=== PATIENT | female | born 1950 | race Caucasian/White ===

== ENCOUNTER 2024-03-22 08:43 | Outpatient (AMB) | payer MEDICARE, SELFPAY ==
[2024-03-22 09:58] VITALS: BP 138/80; PULSE 75; O2SAT 98; BMI 34.9
--- NOTE | 2024-03-22 09:58 | A.OFFVIS_ITS ---
Vital Signs 03/22/24 09:58 Height 5 ft 3 in Weight 197 lb 1.492 oz BMI 34.9 BP 138/80 Blood Pressure Location Lt brachial Pulse 75 Pulse Source Pulse Oximeter Pulse Oximetry (%) 98 Oxygen Delivery Method Room Air Intake Visit Reasons: Arthritis/cm Intake Note: Patient is here for osteoarthritis in wrists and hands. Allergies No Known Allergies Allergy (Verified 03/22/24 10:04) HPI HPI Arthritis/cm: Details: She is not having pain in hands. She participates in gentle chair yoga and does hand exercises that she has learned from PT in the past twice a week. She uses Tylenol arthritis 2 tablets twice a day 8 hours apart daily. She has been using Tylenol for years. 02/22/2024 ALT 40 elevated (0-32), AST 37 (0-40) Review of Systems Const All systems reviewed & are unremarkable except as noted in HPI and below Physical Exam Vital Signs: Last Vital Signs Pulse 75 03/22/24 09:58 BP 138/80 03/22/24 09:58 Pulse Ox 98 03/22/24 09:58 Oxygen Delivery Method Room Air 03/22/24 09:58 BMI result Body Mass Index 34.9 Const Other: General: Comfortable Skin: No lesions seen MSK: No joints are tender on palpation. [place] nodes are present. She has squaring of bilateral CMC joints. 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 Assessment & Plan Assessment & Plan (1) Osteoarthritis, hand, primary localized: Comment: Doing well. Pain is controlled on Tylenol. Recent labs reviewed with patient, which revealed mild transaminitis. She does not have any known history of liver disease. She has been on chronic Tylenol for pain control with benefit for years. Code(s): M19.049 - Primary osteoarthritis, unspecified hand Category: Medical Plan: Continue hand exercises daily AST and ALT repeated for baseline. If there is persistent elevation, I am recommending that she contact PCP for consideration of liver ultrasound She will continue Tylenol 1300 mg b.i.d. for now. May need to reduce dose after liver enzymes are back [facility] Return to clinic in 1 year or sooner if needed (2) Transaminitis: Comment: Unknown baseline. Labs from 02/21/2025 reveals mild elevation in ALT. No alcohol history. Code(s): R74.01 - Elevation of levels of liver transaminase levels Category: Medical Plan: Labs ordered to repeat AST and ALT Orders: Orders Alanine Aminotransferase Today R74.01 - Elevation of levels of liver transaminase levels Aspartate Amino Transferase Today R74.01 - Elevation of levels of liver transaminase levels Coding Level of Care Code Est Pt Level 3 (05645) Complex EM visit Add On G2211 Diagnoses Osteoarthritis, hand, primary localized M19.049 Transaminitis R74.01
--- OUTSIDE RECORDS SUMMARY | 2024-03-28 16:32 | XMS_ITS | Clinical Summary ---
Author Organization Unknown Care Team Providers Care Digital Marketing Analyst Name Role Phone DURAN BETTS, SAMEER Unavailable Unav ailable MUSHTAQ PT, GINA Unavailable Unavailable KADE BRIAN, TEE Unavailable Unavailable Payers Payer Name Policy Type Policy Number Effective Date Expira tion Date MEDICARE - [place] - PD [id number] [facility] [id number] Problems Condition Name Condition Details Condition Category Status Onset Date Resolution Date Last Treatment Date Treating Clinician Comments ENCOUNTER FOR OTHER ORTHOPEDIC AFTERCARE Active 2022-04 00:00: 00 PRIMARY OSTEOARTHRIT IS, RIGHT SHOULDER Active 2022-04 00:00: 00 PRIMARY OSTEOARTHRIT IS, LEFT SHOULDER Active 2022-04 00:00: 00 UNSPECIFIED PROTEIN-MÓNICA DWIGHT MALNUTRITION Active 2022-04 00:00: 00 ESSENTIAL (PRIMARY) HYPERTENSION Active 2022-04 00:00: 00 GASTRO-ESOPH AGEAL REFLUX DISEASE WITHOUT ESOPHAGITIS Active 2022-04 00:00: 00 ANXIETY DISORDER, UNSPECIFIED Active 2022-04 00:00: 00 ANEMIA, UNSPECIFIED Active 2022-04 00:00: 00 MIGRAINE, UNSP, NOT INTRACTABLE, WITHOUT STATUS MIGRAINOSUS Active 2022-04 00:00: 00 OBESITY, UNSPECIFIED Active 2022-04 00:00: 00 BODY MASS INDEX [BMI] 31.0-31.9, ADULT Active 2022-04 00:00: 00 PERSONAL HISTORY OF COLONIC POLYPS Active 2022-04 00:00: 00 PERSONAL HISTORY OF OTHER VENOUS THROMBOSIS AND EMBOLISM Active 2022-04 00:00: 00 PRSNL HX OF TIA (TIA), AND CEREB INFRC W/O RESID DEFICITS Active 2022-04 00:00: 00 ARTHRODESIS STATUS Active 2022-04 00:00: 00 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 Ordering Clinician Indication Dosage Frequency Signature (SIG) Comments Components atorvastati n 80 mg tablet 2022-04 00:00: 00 Yes [id number] 1 tablet BEDTIME 1 tablet BEDTIME (route: oral) Med Classific ation: Cardiovas cular Therapy Agents cholecalcif jacinda (vitamin D3) 125 mcg (5,000 unit) tablet 2022-04 00:00: 00 Yes [id number] 1 tablet DAILY 1 tablet DAILY (route: oral) Med Classific ation: Electroly te Balance-N utritiona l Products enoxaparin 40 mg/0.4 mL subcutaneou s syringe 2022-04 00:00: 00 Yes [id number] 0.4 mL DAILY 0.4 mL DAILY (route: subcutaneo us) Med Classific ation: Hematolog ical Agents ferrous sulfate 325 mg (65 mg iron) tablet 2022-04 00:00: 00 Yes [id number] 1 tablet DAILY 1 tablet DAILY (route: oral) Med Classific ation: Electroly te Balance-N utritiona l Products fluticasone propionate 50 mcg/actuati on nasal spray,suspe nsion 2022-04 00:00: 00 Yes [id number] 1 spray DAILY 1 spray DAILY (route: nasal) Med Classific ation: Respirato ry Therapy Agents melatonin 3 mg tablet 2022-04 00:00: 00 Yes [id number] 1 tablet BEDTIME 1 tablet BEDTIME (route: oral) Med Classific ation: Central Nervous System Agents oxycodone 5 mg tablet 2022-04 00:00: 00 Yes [id number] 2 tablet EVERY 4 HOURS 2 tablet EVERY 4 HOURS (route: oral) Med Classific ation: Analgesic , Anti-infl ammatory or Antipyret ic oxycodone 5 mg tablet 2022-04 00:00: 00 Yes [id number] 1 tablet EVERY 4 HOURS 1 tablet EVERY 4 HOURS (route: oral) Med Classific ation: Analgesic , Anti-infl ammatory or Antipyret ic pantoprazol e 40 mg tablet,rony yed release 2022-04 00:00: 00 Yes [id number] 1 tablet DAILY 1 tablet DAILY (route: oral) Med Classific ation: Gastroint estinal Therapy Agents polyethylen e glycol 3350 8.5 gram oral powder packet 2022-04 00:00: 00 Yes [id number] 2 packet DAILY 2 packet DAILY (route: oral) Med Classific ation: Gastroint estinal Therapy Agents Theragran-M Premier 50 Plus 400 mcg-250 mcg-375 mcg tablet 2022-04 00:00: 00 Yes [id number] 1 tablet DAILY 1 tablet DAILY (route: oral) Med Classific ation: Electroly te Balance-N utritiona l Products trospium 20 mg tablet 2022-04 00:00: 00 Yes [id number] 1 tablet BEDTIME 1 tablet BEDTIME (route: oral) Med Classific ation: Genitouri nary Therapy Vitamin B-2 100 mg tablet 2022-04 00:00: 00 Yes [id number] 2 tablet DAILY 2 tablet DAILY (route: oral) Med Classific ation: Electroly te Balance-N utritiona l Products ciprofloxac in 250 mg tablet 1 00:00: 00 04-28 23:59 :00 No [id number] 1 tablet 2 TIMES DAILY 1 tablet 2 TIMES DAILY (route: oral) Med Classific ation: Anti-Infe ctive Agents Immunizations Ordered Immunization Name Filled Immunization Name Date Status Comments Refusal Reason COVID FIRST DOSE, COVID FIRST DOSE 2023-03-01 00:00:00 INFLUENZA, LAIV (LIVE VIRUS) 2023-03-01 00:00:00 PNEUMOCOCCAL (PPV), PPV 2021-01-22 00:00:00 Vital Signs Vital Name Observation Time Observation Value Commen ts Temperature 2023-05-06 10:40:00.000 97 [degF] Temperature 2023-05-03 12:29:00.000 98.4 [degF] Temperature 2023-04-30 14:40:00.000 97 [degF] Temperature 2023-04-28 10:13:00.000 97 [degF] Temperature 2023-04-22 12:44:00.000 97.4 [degF] Temperature 2023-04-21 11:12:00.000 97.2 [degF] Temperature 2023-04-15 14:16:00.000 98 [degF] Temperature 2023-04-13 12:32:00.000 97.3 [degF] Temperature 2023-04-09 12:15:00.000 97.8 [degF] Temperature 2023-04-09 11:14:00.000 98 [degF] Temperature 2023-04-05 12:27:00.000 97.9 [degF] BMI (%) 2023-04-05 12:18:05.000 31 kg/m2 Height 2023-04-05 12:17:58.000 63 [in_us] Pulse 2023-05-06 10:40:00.000 76 /min Pulse 2023-05-03 12:29:00.000 78 /min Pulse 2023-04-30 14:40:00.000 77 /min Pulse 2023-04-28 10:13:00.000 77 /min Pulse 2023-04-22 12:44:00.000 73 /min Pulse 2023-04-21 11:12:00.000 87 /min Pulse 2023-04-15 14:16:00.000 71 /min Pulse 2023-04-13 12:32:00.000 74 /min Pulse 2023-04-09 12:15:00.000 70 /min Pulse 2023-04-09 11:14:00.000 76 /min Pulse 2023-04-08 16:05:00.000 72 /min Pulse 2023-04-05 12:27:00.000 78 /min O2 Saturation (%) 2023-05-06 10:40:00.000 97 % O2 Saturation (%) 2023-05-03 12:29:00.000 97 % O2 Saturation (%) 2023-04-28 10:13:00.000 98 % O2 Saturation (%) 2023-04-22 12:44:00.000 97 % O2 Saturation (%) 2023-04-21 11:12:00.000 97 % O2 Saturation (%) 2023-04-15 14:16:00.000 98 % O2 Saturation (%) 2023-04-13 12:32:00.000 99 % O2 Saturation (%) 2023-04-09 11:14:00.000 97 % O2 Saturation (%) 2023-04-08 16:05:00.000 96 % O2 Saturation (%) 2023-04-05 12:27:00.000 96 % Respirations 2023-05-06 10:40:00.000 18 /min Respirations 2023-05-03 12:29:00.000 18 /min Respirations 2023-04-30 14:40:00.000 18 /min Respirations 2023-04-28 10:13:00.000 18 /min Respirations 2023-04-22 12:44:00.000 18 /min Respirations 2023-04-21 11:12:00.000 16 /min Respirations 2023-04-15 14:16:00.000 18 /min Respirations 2023-04-13 12:32:00.000 18 /min Respirations 2023-04-09 12:15:00.000 17 /min Respirations 2023-04-09 11:14:00.000 18 /min Respirations 2023-04-05 12:27:00.000 18 /min Weight (lbs) 2023-04-05 12:18:05.000 180 [lb_av] Systolic Blood Pressure 2023-05-06 10:40:00.000 122 mm [Hg] Systolic Blood Pressure 2023-05-03 12:29:00.000 128 mm [Hg] Systolic Blood Pressure 2023-04-30 14:40:00.000 118 mm [Hg] Systolic Blood Pressure 2023-04-28 10:13:00.000 118 mm [Hg] Systolic Blood Pressure 2023-04-22 12:44:00.000 118 mm [Hg] Systolic Blood Pressure 2023-04-21 11:12:00.000 126 mm [Hg] Systolic Blood Pressure 2023-04-15 14:16:00.000 124 mm [Hg] Systolic Blood Pressure 2023-04-13 12:32:00.000 120 mm [Hg] Systolic Blood Pressure 2023-04-09 12:15:00.000 138 mm [Hg] Systolic Blood Pressure 2023-04-09 11:14:00.000 140 mm [Hg] Systolic Blood Pressure 2023-04-08 16:05:00.000 122 mm [Hg] Systolic Blood Pressure 2023-04-05 12:27:00.000 120 mm [Hg] Diastolic Blood Pressure 2023-05-06 10:40:00.000 70 mm [Hg] Diastolic Blood Pressure 2023-05-03 12:29:00.000 60 mm [Hg] Diastolic Blood Pressure 2023-04-30 14:40:00.000 65 mm [Hg] Diastolic Blood Pressure 2023-04-28 10:13:00.000 62 mm [Hg] Diastolic Blood Pressure 2023-04-22 12:44:00.000 68 mm [Hg] Diastolic Blood Pressure 2023-04-21 11:12:00.000 68 mm [Hg] Diastolic Blood Pressure 2023-04-15 14:16:00.000 70 mm [Hg] Diastolic Blood Pressure 2023-04-13 12:32:00.000 70 mm [Hg] Diastolic Blood Pressure 2023-04-09 12:15:00.000 78 mm [Hg] Diastolic Blood Pressure 2023-04-09 11:14:00.000 78 mm [Hg] Diastolic Blood Pressure 2023-04-08 16:05:00.000 76 mm [Hg] Diastolic Blood Pressure 2023-04-05 12:27:00.000 64 mm [Hg] Plan of Treatment Planned Activity Planned Date Details Comments Future Scheduled Test SKILLED NU RSE TO EVALUATE PATIENT, IDENTIFY PRIMARY AND CO-MORBID CONDITIONS CODED PER CODING GUIDELINES, AND DEVELOP PATIENT SPECIFIC PLAN OF CARE THAT INCLUDES PATIENT GOAL FOR HOME HEALTH. [code = SKILLED NURSE TO EVALUATE PATIENT, IDENTIFY PRIMARY AND CO-MORBID CONDITIONS CODED PER CODING GUIDELINES, AND DEVELOP PATIENT SPECIFIC PLAN OF CARE THAT INCLUDES PATIENT GOAL FOR HOME HEALTH.] Future Scheduled Test SKILLED NU RSE TO REVIEW PATIENT MEDICATIONS. INSTRUCT PATIENT/CAREGIVER ON MONITORING OF EFFECTIVENESS, ADVERSE DRUG REACTIONS, SIDE EFFECTS OF ALL MEDICATIONS (PRESCRIPTION/-OTC), AND HOW AND WHEN TO REPORT PROBLEMS. [code = SKILLED NURSE TO REVIEW PATIENT MEDICATIONS. INSTRUCT PATIENT/CAREGIVER ON MONITORING OF EFFECTIVENESS, ADVERSE DRUG REACTIONS, SIDE EFFECTS OF ALL MEDICATIONS (PRESCRIPTION/-OTC), AND HOW AND WHEN TO REPORT PROBLEMS.] Future Scheduled Test SKILLED NU RSE TO ASSESS ANXIETY AND PROVIDE ASSISTANCE TO PATIENT FOR UNDERSTANDING AND MANAGEMENT OF FEELINGS. [code = SKILLED NURSE TO ASSESS ANXIETY AND PROVIDE ASSISTANCE TO PATIENT FOR UNDERSTANDING AND MANAGEMENT OF FEELINGS.] Future Scheduled Test SKILLED NU RSE MAY COLLECT URINE SAMPLE FOR URINE REAGENT STRIP TESTING AND/OR URINALYSIS WITH CS 1-3 PRN IF INDICATED FOR SIGNS AND SYMPTOMS OF UTI. IF REAGENT STRIP TEST IS POSITIVE FOR UTI, SKILLED NURSE TO TAKE URINE SAMPLE TO LAB FOR URINE CS AND REPORT RESULTS TO PHYSICIAN. [code = SKILLED NURSE MAY COLLECT URINE SAMPLE FOR URINE REAGENT STRIP TESTING AND/OR URINALYSIS WITH CS 1-3 PRN IF INDICATED FOR SIGNS AND SYMPTOMS OF UTI. IF REAGENT STRIP TEST IS POSITIVE FOR UTI, SKILLED NURSE TO TAKE URINE SAMPLE TO LAB FOR URINE CS AND REPORT RESULTS TO PHYSICIAN.] Future Scheduled Test SKILLED NU RSE FOR O/A, TEACHING RELATED TO GIB FOR EARLY IDENTIFICATION OF EXACERBATION OF DISEASE PROCESS. [code = SKILLED NURSE FOR O/A, TEACHING RELATED TO GIB FOR EARLY IDENTIFICATION OF EXACERBATION OF DISEASE PROCESS.] Future Scheduled Test OCCUPATION AL THERAPIST TO EVALUATE PATIENT [code = OCCUPATIONAL THERAPIST TO EVALUATE PATIENT ] Future Scheduled Test SKILLED NU RSE FOR O/A AND SKILLED TEACHING RELATED TO SIGNS AND SYMPTOMS OF INFECTION AND INFECTION CONTROL MEASURES. [code = SKILLED NURSE FOR O/A AND SKILLED TEACHING RELATED TO SIGNS AND SYMPTOMS OF INFECTION AND INFECTION CONTROL MEASURES.] Future Scheduled Test SKILLED NU RSE FOR O/A OF MUSCULOSKELETAL STATUS AND TEACHING ON MEASURES TO MANAGE NON WEIGHT BEARING ON RLE AND TO MAINTAIN SAFETY WITH ACTIVITY [code = SKILLED NURSE FOR O/A OF MUSCULOSKELETAL STATUS AND TEACHING ON MEASURES TO MANAGE NON WEIGHT BEARING ON RLE AND TO MAINTAIN SAFETY WITH ACTIVITY] Future Scheduled Test PHYSICAL T HERAPIST TO EVALUATE PATIENT [code = PHYSICAL THERAPIST TO EVALUATE PATIENT] Future Scheduled Test SKILLED NU RSE TO PROVIDE TEACHING ON SIGNS AND SYMPTOMS AND MANAGEMENT OF HYPERTENSION. [code = SKILLED NURSE TO PROVIDE TEACHING ON SIGNS AND SYMPTOMS AND MANAGEMENT OF HYPERTENSION.] Future Scheduled Test SKILLED NU RSE FOR O/A AND SKILLED TEACHING RELATED TO SIGNS AND SYMPTOMS AND MANAGEMENT OF ANEMIA. [code = SKILLED NURSE FOR O/A AND SKILLED TEACHING RELATED TO SIGNS AND SYMPTOMS AND MANAGEMENT OF ANEMIA.] Future Scheduled Test VIRTUAL SIT FREQUENCY: 1-6 PER WEEK X 3 WEEKS AND 6 PRN VIRTUAL VISITS MAY BE PERFORMED UTILIZING TELECOMMUNICATIONS SYSTEM TO OPTIMIZE SKILLED SERVICES FURNISHED ON THE PLAN OF CARE. SKILLED NURSE TO ESTABLISH SUPPORT MEASURES TO MINIMIZE RISK OF REHOSPITALIZATION, AND INSTRUCT PATIENT/CAREGIVER ON METHODS TO REDUCE AVOIDABLE HOSPITALIZATION. [code = VIRTUAL VISIT FREQUENCY: 1-6 PER WEEK X 3 WEEKS AND 6 PRN VIRTUAL VISITS MAY BE PERFORMED UTILIZING TELECOMMUNICATIONS SYSTEM TO OPTIMIZE SKILLED SERVICES FURNISHED ON THE PLAN OF CARE. SKILLED NURSE TO ESTABLISH SUPPORT MEASURES TO MINIMIZE RISK OF REHOSPITALIZATION, AND INSTRUCT PATIENT/CAREGIVER ON METHODS TO REDUCE AVOIDABLE HOSPITALIZATION.] Future Scheduled Test PATIENT KRISHNAN S A RISK OF HOSPITALIZATION AND ED USE. SKILLED NURSE TO ESTABLISH SUPPORT MEASURES TO MINIMIZE RISK OF HOSPITALIZATION AND ED USE, AND INSTRUCT PATIENT/CAREGIVER ON METHODS TO REDUCE AVOIDABLE HOSPITALIZATION AND ED USE. [code = PATIENT HAS A RISK OF HOSPITALIZATION AND ED USE. SKILLED NURSE TO ESTABLISH SUPPORT MEASURES TO MINIMIZE RISK OF HOSPITALIZATION AND ED USE, AND INSTRUCT PATIENT/CAREGIVER ON METHODS TO REDUCE AVOIDABLE HOSPITALIZATION AND ED USE.] Future Scheduled Test SKILLED NU RSE TO PROVIDE INSTRUCTION TO PATIENT/CAREGIVER RELATED TO DISCHARGE PLANNING. [code = SKILLED NURSE TO PROVIDE INSTRUCTION TO PATIENT/CAREGIVER RELATED TO DISCHARGE PLANNING.] Future Scheduled Test SKILLED NU RSE TO PERFORM HOME SAFETY AND FALL ASSESSMENT AND PROVIDE INSTRUCTION TO IMPLEMENT HOME SAFETY AND FALL PREVENTION STRATEGIES. [code = SKILLED NURSE TO PERFORM HOME SAFETY AND FALL ASSESSMENT AND PROVIDE INSTRUCTION TO IMPLEMENT HOME SAFETY AND FALL PREVENTION STRATEGIES.] Future Scheduled Test SKILLED NU RSE FOR OBSERVATION AND ASSESSMENT OF PATIENTS PAIN LEVEL AND EFFECTIVENESS OF PAIN MANAGEMENT REGIMEN. SKILLED NURSE TO INSTRUCT PATIENT/CAREGIVER REGARDING PHARMACOLOGIC AND NON-PHARMACOLOGIC PAIN CONTROL MEASURES. SKILLED NURSE TO REPORT TO PHYSICIAN IF PAIN IS UNCONTROLLED WITH CURRENT PAIN MANAGEMENT REGIMEN. [code = SKILLED NURSE FOR OBSERVATION AND ASSESSMENT OF PATIENTS PAIN LEVEL AND EFFECTIVENESS OF PAIN MANAGEMENT REGIMEN. SKILLED NURSE TO INSTRUCT PATIENT/CAREGIVER REGARDING PHARMACOLOGIC AND NON-PHARMACOLOGIC PAIN CONTROL MEASURES. SKILLED NURSE TO REPORT TO PHYSICIAN IF PAIN IS UNCONTROLLED WITH CURRENT PAIN MANAGEMENT REGIMEN.] Future Scheduled Test SKILLED NU RSE TO ASSESS PATIENT'S SKIN INTEGRITY AND INSTRUCT PATIENT/CAREGIVER ON MEASURES TO PREVENT PRESSURE ULCERS. [code = SKILLED NURSE TO ASSESS PATIENT'S SKIN INTEGRITY AND INSTRUCT PATIENT/CAREGIVER ON MEASURES TO PREVENT PRESSURE ULCERS.] Future Scheduled Test OCCUPATION AL THERAPY TO EVALUATE AND TREAT. OCCUPATIONAL THERAPY EVALUATION COMPLETED. NO ADDITIONAL VISITS RECOMMENDED AT THIS TIME. [code = OCCUPATIONAL THERAPY TO EVALUATE AND TREAT. OCCUPATIONAL THERAPY EVALUATION COMPLETED. NO ADDITIONAL VISITS RECOMMENDED AT THIS TIME.] Goal 2023-05-06 Patient Goal - I WANT TO BE ABLE TO HAVE BETTER STRENGTH AND STABILITY Goal Provider Goal - A PLAN OF CARE WILL BE ESTABLISHED THAT MEETS PATIENT'S CORRECTION NEEDS AND INCLUDES PATIENT GOAL FOR HOME HEALTH. Goal Provider Goal - PATIENT/CAREGIVER WILL VERBALIZE UNDERSTANDING OF EDUCATION PROVIDED ON MEDICATIONS BY THE END OF THE CERTIFICATION PERIOD. Goal Provider Goal - SYMPTOMS OF ANXIETY ARE IDENTIFIED AND INTERVENTIONS INITIATED TO ENABLE PATIENT TO UNDERSTAND AND MANAGE FEELINGS THROUGHOUT EPISODE. Goal Provider Goal - URINE SPECIMEN WILL BE OBTAINED PRN FOR SIGNS AND SYMPTOMS OF UTI AND RESULTS WILL BE REPORTED TO PHYSICIAN THROUGHOUT THE CERTIFICATION PERIOD. Goal Provider Goal - EXACERBATIONS OF GASTROINTESTINAL DISEASE WILL BE PROMPTLY IDENTIFIED AND INTERVENTIONS IMPLEMENTED TO MINIMIZE RISKS TO PATIENT BY END OF EPISODE. Goal Provider Goal - OCCUPATIONAL THERAPY EVALUATION TO BE COMPLETED WITH RECOMMENDATIONS AND WRITTEN PLAN OF TREATMENT ESTABLISHED FOR THE PHYSICIANS SIGNATURE. Goal Provider Goal - PATIENT/CAREGIVER WILL VERBALIZE/DEMONSTRATE UNDERSTANDING OF S/S OF INFECTION AND INFECTION CONTROL MEASURES. SIGNS AND SYMPTOMS OF INFECTION WILL BE IDENTIFIED AND PHYSICIAN NOTIFIED FOR PROMPT INTERVENTION THROUGHOUT THE CERTIFICATION PERIOD. Goal Provider Goal - PATIENT/CAREGIVER WILL VERBALIZE/DEMONSTRATE ABILITY TO MANAGE NON WEIGHT BEARING RLE WHILE MAINTAINING SAFETY THROUGHOUT THE EPISODE. Goal Provider Goal - A PHYSICAL THERAPY EVALUATION TO BE COMPLETED WITH RECOMMENDATIONS AND/OR WRITTEN PLAN OF TREATMENT ESTABLISHED FOR PHYSICIANS SIGNATURE. Goal Provider Goal - PATIENT/CAREGIVER WILL VERBALIZE SIGNS AND SYMPTOMS OF HYPERTENSION AND WILL BE ABLE TO DEMONSTRATE ABILITY TO MANAGE EXACERBATION BY END OF THE EPISODE. Goal Provider Goal - PATIENT/CARGIVER WILL VERBALIZE UNDERSTANDING OF ANEMIA INCLUDING SIGNS AND SYMPTOMS, MANAGEMENT OF COMPLICATIONS, AND PRESCRIBED TREATMENT REGIMEN BY END OF EPISODE. Goal Provider Goal - PATIENT/CAREGIVER WILL UTILIZE VIRTUAL VISITS TO ACHIEVE GOALS OUTLINED ON THE PLAN OF CARE. PATIENT WILL HAVE SUPPORT MEASURES ESTABLISHED TO PREVENT HOSPITALIZATION AND PATIENT/CAREGIVER WILL VERBALIZE/DEMONSTRATE METHODS TO REDUCE AVOIDABLE HOSPITALIZATION THROUGHOUT THE CERTIFICATION PERIOD. Goal Provider Goal - PATIENT WILL HAVE SUPPORT MEASURES ESTABLISHED TO PREVENT HOSPITALIZATION AND ED USE AND PATIENT/CAREGIVER WILL VERBALIZE/DEMONSTRATE METHODS TO REDUCE AVOIDABLE HOSPITALIZATION AND ED USE BY END OF EPISODE. Goal Provider Goal - PATIENT/CAREGIVER WILL VERBALIZE UNDERSTANDING OF DISCHARGE PLANNING INSTRUCTIONS BY DATE OF DISCHARGE. Goal Provider Goal - PATIENT/CAREGIVER WILL VERBALIZE/DEMONSTRATE EFFECTIVE HOME SAFETY AND FALL PREVENTION STRATEGIES THROUGHOUT CERTIFICATION PERIOD. Goal Provider Goal - PATIENT/CAREGIVER WILL DEMONSTRATE UNDERSTANDING OF PHARMACOLOGIC AND NONPHARMACOLOGIC PAIN CONTROL MEASURES AND PATIENT WILL HAVE IMPROVEMENT IN PAIN INTERFERING WITH ACTIVITY EVIDENCED BY PAIN CONTROLLED AT LEVEL OF 7 OR LESS BY END OF CERTIFICATION PERIOD. Goal Provider Goal - PATIENT/CAREGIVER WILL VERBALIZE UNDERSTANDING OF PRESSURE ULCER PREVENTION BY END OF THE EPISODE. Goal Provider Goal - OT EVALUATION (04/08/23) PATIENT IS 72 YEAR OLD FEMALE REFERRED TO OT SERVICES AFTER UNDERGOING ELECTIVE PROCEDURE 03/22/23. PATIENT HAD A RIGHT TRIPLE HINDFOOT ARTHRODESIS , RIGHT GASTROCNEMIUS RECESSION AND RIGHT PERONEUS BREVIS TO LONG DEEP TENDON SURGERY . PATIENT STABILIZED AND TRANSFERRED TO [facility] 03/23/[address] [facility] FOR: ANXIETY DISORDER, DEGENERATIVE LUMBAR DISEASE, HYPERTENSION, VITAMIN D DEFICIENCY, CVA, H/O UPPER GI BLEED, ANEMIA, MIGRAINES, OBESITY, CHRONIC BILATERAL SHOULDER PAIN AND HISTORY OF LAP BAND PROCEDURE (~10 YRS AGO) PRIOR LEVEL OF FUNCTION: PATIENT LIVES IN 1ST FLOOR, SENIOR HOUSING APARTMENT. SHE AMBULATED WITH WALKER RIGHT BEFORE SURGERY BUT HAD BEEN GETTING BY WITH CANE. SHE RECEIVES 2 DAYS HOMEMAKER SERVICES THRU [facility]. HAS ALL NECESBlack [employer]us[employer] EQUIPMENT IN PLACE FOR ADLS. HAS MEALS ON WHEELS 5X/WK. CURRENT LEVEL OF FUNCTION: PATIENT SITTING IN RECLINER CHAIR UPON THERAPIST ARRIVAL. SHE WAS SEEN BY THE SURGEON ON 04/06 AND WAS UPGRADED TO NEW CAST THAT ENCOMPASSES ENTIRE FOOT WITH TOES ONLY EXPOSED. PATIENT TO REMAIN IN THIS CAST UNTIL FOLLOW-UP APPOINTMENT 05/04. SHE IS NON WEIGHT BEARING RIGHT LOWER EXTREMITY. SHE'S ABLE TO STAY IN PIVOT TRANSFER FROM CHAIR TO WHEELCHAIR WHEELCHAIR TO COMMODE WHEELCHAIR TO BED WITH SUPERVISION IS PATIENT IS FEARFUL TO BE MOVING WITHOUT ANYBODY PRESENT. SHE RECEIVES NOW APPROVED 3 DAYS A WEEK FROM [facility] TO ASSIST WITH SHOWER LEVEL BATHING CLEANING. SHE RECEIVES MEALS ON WHEELS 5 DAYS A WEEK. HAS VERY SUPPORTIVE CHILDREN AND GRANDCHILDREN INVOLVED IN HER CARE TO ASSIST WITH TOILETING NEEDED DURING THE DAY WELL ADLS ON THE NON-[facility] SERVICE DAYS. SHE'S ABLE TO GET IN AND OUT OF THE KITCHEN TO REACH ITEMS TO PREPARE LIGHT MEALS USUALLY COLD MEAL PREP SNACKS. SHE IS NOT ABLE TO DRIVE AT THIS TIME THE PEDAL FOOT IS THE ONE THAT IS IN THE CAST. SHE DEMONSTRATES WITHIN FUNCTIONAL LIMITS RANGE OF MOTION BOTH UPPER EXTREMITIES WITH GOOD STRENGTH THROUGHOUT TO MEET BASIC FUNCTIONAL TRANSFER ADL TASKS. SHE OFFERS COMPLAINTS OF PAIN WHEN SITTING WITH THE LEG ELEVATED ROUGHLY 1 TO 3/10 HOWEVER WHEN UP MOVING ABOUT LEG TENDS TO GET MORE PAINFUL WITH THE INCREASE IN BLOOD FLOW AND CAN REACH UP TO A 7 OR 8/10. PATIENT HAS ALL NECESSARY EQUIPMENT IN HOME FOR SAFETY WITH ALL ADLS AND MOBILITY. PATIENT WAS HAVING HEALTH ISSUES PRIOR TO THIS ELECTIVE SURGICAL PROCEDURE SO THESE PIECES OF EQUIPMENT WERE IN PLACE FOR HER USE PRIOR TO THE SURGERY WELL THE ASSISTANCE FROM [facility]. ASSESSMENT/POC: OCCUPATIONAL THERAPY EVALUATION COMPLETED TODAY WITH NO FURTHER SKILLED OT INDICATED AT THIS TIME. PATIENT IS AT MAX LEVEL FOR ADLS WITH GIVEN WEIGHTBEARING STATUS. PATIENT HAS ALL NECESSARY SAFETY EQUIPMENT IN HOME FOR ALL FUNCTIONAL MOBILITY AND ADLS. NOTIFIED OF OT EVAL ONLY THIS DATE. SHE HAS 05/04/23 F/U WITH SURGEON FOR POSSIBLE UPGRADE Reason for Visit MINIMUM ASSIST WITH TRANSFER/AMBULATION/ADLS Encounters Start Date/Time End Date/Time Encounter Type Admission Type Attending [facility] Facility Care Department Encounter ID Discharge Date Discharge Status Discharge Condition Discharge Reason Percent Goals Met 2023-04-05 00:00:00 2023-05-06 00:00:00 Outpatient NEW ADMISSION [facility] [id number] 2023-05-06 00:00:00 DISCHARGE TO HOME OR SELF CARE MINIMUM ASSIST WITH TRANSFER/A MBULATION/ ADLS PER CLIENT REQUEST 65.71
== END 2024-03-22 10:46 | disposition home or self-care (01) ==
PROVIDERS: PCP Internal Medicine; Visit Provider Internal Medicine Rheumatology
DX: M19.049 Primary osteoarthritis, unspecified hand (principal); R74.01 Elevation of levels of liver transaminase levels
CPT/HCPCS: 99213; G2211

== ENCOUNTER 2024-03-22 13:16 | Outpatient (REF) | payer MEDICARE, SELFPAY ==
[2024-03-22 14:57] LABS: Alanine Aminotransferase 32 U/L (0-31); Aspartate Amino Transferase 31 U/L (5-31)
--- OUTSIDE RECORDS SUMMARY | 2024-03-28 19:28 | XMS_ITS | Clinical Summary ---
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 Active 2022-04 00:00: 00 [...] 80 mg tablet 2022-04 00:00: 00 Yes [id number] 1 tablet BEDTIME 1 tablet BEDTIME (route: oral) Med Classific ation: Cardiovas cular Therapy Agents cholecalcif jacinda (vitamin D3) 125 mcg (5,000 unit) tablet 2022-04 00:00: 00 Yes [id number] 1 tablet DAILY 1 tablet DAILY (route: oral) Med Classific ation: Electroly te Balance-N utritiona l Products enoxaparin 40 mg/0.4 mL subcutaneou s syringe 2022-04 00:00: 00 Yes [id number] 0.4 mL DAILY 0.4 mL DAILY (route: subcutaneo us) Med Classific ation: Hematolog ical Agents ferrous sulfate 325 mg (65 mg iron) tablet 2022-04 00:00: 00 Yes [id number] 1 tablet DAILY 1 tablet DAILY (route: oral) Med Classific ation: Electroly te Balance-N utritiona l Products fluticasone propionate 50 mcg/actuati on nasal spray,suspe nsion 2022-04 00:00: 00 Yes [id number] 1 spray DAILY 1 spray DAILY (route: nasal) Med Classific ation: Respirato ry Therapy Agents melatonin 3 mg tablet 2022-04 00:00: 00 Yes [id number] 1 tablet BEDTIME 1 tablet BEDTIME (route: oral) Med Classific ation: Central Nervous System Agents oxycodone 5 mg tablet 2022-04 00:00: 00 Yes [id number] 2 tablet EVERY 4 HOURS 2 tablet EVERY 4 HOURS (route: oral) Med Classific ation: Analgesic , Anti-infl ammatory or Antipyret ic oxycodone 5 mg tablet 2022-04 00:00: 00 Yes [id number] 1 tablet EVERY 4 HOURS 1 tablet EVERY 4 HOURS (route: oral) Med Classific ation: Analgesic , Anti-infl ammatory or Antipyret ic pantoprazol e 40 mg tablet,rony yed release 2022-04 00:00: 00 Yes [id number] 1 tablet DAILY 1 tablet DAILY (route: oral) Med Classific ation: Gastroint estinal Therapy Agents polyethylen e glycol 3350 8.5 gram oral powder packet 2022-04 00:00: 00 Yes [id number] 2 packet DAILY 2 packet DAILY (route: oral) Med Classific ation: Gastroint estinal Therapy Agents Theragran-M Premier 50 Plus 400 mcg-250 mcg-375 mcg tablet 2022-04 00:00: 00 Yes [id number] 1 tablet DAILY 1 tablet DAILY (route: oral) Med Classific ation: Electroly te Balance-N utritiona l Products trospium 20 mg tablet 2022-04 00:00: 00 Yes [id number] 1 tablet BEDTIME 1 tablet BEDTIME (route: oral) Med Classific ation: Genitouri nary Therapy Vitamin B-2 100 mg tablet 2022-04 00:00: 00 Yes [id number] 2 tablet DAILY 2 tablet DAILY (route: oral) Med Classific ation: Electroly te Balance-N utritiona l Products ciprofloxac in 250 mg tablet 1 00:00: 00 04-28 23:59 :00 No [id number] 1 tablet 2 TIMES DAILY 1 tablet [...] CARE WILL BE ESTABLISHED THAT MEETS PATIENT'S FDC NEEDS AND INCLUDES PATIENT GOAL FOR HOME [...] SURGERY . PATIENT STABILIZED AND TRANSFERRED TO [facility] 03/23/23 BEFORE DISCHARGING HOME [facility] SIGNIGICANT FOR: ANXIETY DISORDER, DEGENERATIVE LUMBAR DISEASE, [...] HOMEMAKER SERVICES THRU [facility]. HAS ALL NECESBuyHappyY EQUIPMENT IN PLACE FOR ADLS. HAS MEALS [...] End Date/Time Encounter Type Admission Type Attending [facility] Care Facility Care Department Encounter ID Discharge Date Discharge Status Discharge Condition Discharge Reason Percent Goals Met 2023-04-05 00:00:00 2023-05-06 00:00:00 Outpatient NEW ADMISSION TEE BRAUN [facility] [id number] 2023-05-06 00:00:00 DISCHARGE TO HOME OR SELF CARE MINIMUM ASSIST WITH TRANSFER/A MBULATION/ ADLS PER CLIENT REQUEST 65.71
--- OUTSIDE RECORDS SUMMARY | 2024-03-28 19:28 | XMS_ITS | Clinical Summary ---
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 Active 2022-04 00:00: 00 [...] 80 mg tablet 2022-04 00:00: 00 Yes [id number] 1 tablet BEDTIME 1 tablet BEDTIME (route: oral) Med Classific ation: Cardiovas cular Therapy Agents cholecalcif jacinda (vitamin D3) 125 mcg (5,000 unit) tablet 2022-04 00:00: 00 Yes [id number] 1 tablet DAILY 1 tablet DAILY (route: oral) Med Classific ation: Electroly te Balance-N utritiona l Products enoxaparin 40 mg/0.4 mL subcutaneou s syringe 2022-04 00:00: 00 Yes [id number] 0.4 mL DAILY 0.4 mL DAILY (route: subcutaneo us) Med Classific ation: Hematolog ical Agents ferrous sulfate 325 mg (65 mg iron) tablet 2022-04 00:00: 00 Yes [id number] 1 tablet DAILY 1 tablet DAILY (route: oral) Med Classific ation: Electroly te Balance-N utritiona l Products fluticasone propionate 50 mcg/actuati on nasal spray,suspe nsion 2022-04 00:00: 00 Yes [id number] 1 spray DAILY 1 spray DAILY (route: nasal) Med Classific ation: Respirato ry Therapy Agents melatonin 3 mg tablet 2022-04 00:00: 00 Yes [id number] 1 tablet BEDTIME 1 tablet BEDTIME (route: oral) Med Classific ation: Central Nervous System Agents oxycodone 5 mg tablet 2022-04 00:00: 00 Yes [id number] 2 tablet EVERY 4 HOURS 2 tablet EVERY 4 HOURS (route: oral) Med Classific ation: Analgesic , Anti-infl ammatory or Antipyret ic oxycodone 5 mg tablet 2022-04 00:00: 00 Yes [id number] 1 tablet EVERY 4 HOURS 1 tablet EVERY 4 HOURS (route: oral) Med Classific ation: Analgesic , Anti-infl ammatory or Antipyret ic pantoprazol e 40 mg tablet,rony yed release 2022-04 00:00: 00 Yes [id number] 1 tablet DAILY 1 tablet DAILY (route: oral) Med Classific ation: Gastroint estinal Therapy Agents polyethylen e glycol 3350 8.5 gram oral powder packet 2022-04 00:00: 00 Yes [id number] 2 packet DAILY 2 packet DAILY (route: oral) Med Classific ation: Gastroint estinal Therapy Agents Theragran-M Premier 50 Plus 400 mcg-250 mcg-375 mcg tablet 2022-04 00:00: 00 Yes [id number] 1 tablet DAILY 1 tablet DAILY (route: oral) Med Classific ation: Electroly te Balance-N utritiona l Products trospium 20 mg tablet 2022-04 00:00: 00 Yes [id number] 1 tablet BEDTIME 1 tablet BEDTIME (route: oral) Med Classific ation: Genitouri nary Therapy Vitamin B-2 100 mg tablet 2022-04 00:00: 00 Yes [id number] 2 tablet DAILY 2 tablet DAILY (route: oral) Med Classific ation: Electroly te Balance-N utritiona l Products ciprofloxac in 250 mg tablet 1 00:00: 00 04-28 23:59 :00 No [id number] 1 tablet 2 TIMES DAILY 1 tablet [...] CARE WILL BE ESTABLISHED THAT MEETS PATIENT'S GROUP HOME NEEDS AND INCLUDES PATIENT GOAL FOR HOME [...] SURGERY . PATIENT STABILIZED AND TRANSFERRED TO [facility] 03/23/23 BEFORE DISCHARGING HOME [facility] SIGNIGICANT FOR: ANXIETY DISORDER, DEGENERATIVE LUMBAR DISEASE, [...] HOMEMAKER SERVICES THRU [employer]. HAS ALL NECESVytronUSY EQUIPMENT IN PLACE FOR ADLS. HAS MEALS [...] End Date/Time Encounter Type Admission Type Attending [facility] Care Facility Care Department Encounter ID Discharge Date Discharge Status Discharge Condition Discharge Reason Percent Goals Met 2023-04-05 00:00:00 2023-05-06 00:00:00 Outpatient NEW ADMISSION TEE BRAUN [facility] [id number] 2023-05-06 00:00:00 DISCHARGE TO HOME OR SELF CARE MINIMUM ASSIST WITH TRANSFER/A MBULATION/ ADLS PER CLIENT REQUEST 65.71
== END 2024-03-22 13:17 | disposition home or self-care (01) ==
LOC: HO.WFDLDS 13:16
PROVIDERS: Visit Provider Internal Medicine Rheumatology
DX: R74.01 Elevation of levels of liver transaminase levels (principal); M19.049 Primary osteoarthritis, unspecified hand
CPT/HCPCS: 36415; 84450; 84460; 99212